=== PATIENT | female | born 1940 | race Caucasian/White ===

== ENCOUNTER 2017-02-04 10:32 | Outpatient (CLI) | payer MEDICARE ==
[2017-02-04 11:27] LABS: ALT (SGPT) 7 U/L (0-55); AST (SGOT) 19 U/L (5-34); Albumin 3.8 g/dL (3.4-4.8); Alkaline Phosphatase 69 U/L (40-150); Anion Gap 14 mmol/L (10-20); BUN (Urea Nitrogen) 13 mg/dL (9.8-20.1); Bilirubin, Total 1.6 mg/dL (0.2-1.2); Calc. Creatinine Clearance 0 mL/min (70-130); Calcium 9.2 mg/dL (7.8-10.44); Carbon Dioxide 26 mmol/L (23-31); Chloride 91 mmol/L (98-107); Estimated GFR-MDRD 81; Globulin 2.4 g/dL (2.4-3.5); Glucose 120 mg/dL (83-110); Protein, Total 6.2 g/dL (5.8-8.1); Sodium 127 mmol/L (136-145)
[2017-02-04 12:08] LABS: Free T4 (Free Thyroxine) 1.28 ng/dL (0.70-1.48); Thyroid Stimulating Hormone 1.3519 uIU/mL (0.35-4.94)
[2017-02-04 17:59] LABS: Free T3 1.92 pg/mL (1.71-3.71)
== END 2017-02-04 10:33 | disposition home or self-care (01) ==
LOC: HPCALD 10:32
PROVIDERS: ATTEND Family Medicine
DX: E03.9 Hypothyroidism, unspecified (principal)
CPT/HCPCS: 36415; 80053; 84439; 84443; 84481